=== PATIENT | male | born 1965 | race Caucasian/White ===

== ENCOUNTER 2016-09-03 18:05 | Emergency (ER) | payer OTHER ==
[~2016-09-03] VITALS: Ht 190.5 cm; Wt 73.4 kg
[2016-09-03] MEDS ORDERED: LEVE500T8 PO (18:45)
[2016-09-03] MEDS ORDERED: IPRA3AMP NEB (18:45)
[2016-09-03] MEDS ORDERED: THIA100T10 PO (18:45)
[2016-09-03] MEDS ORDERED: CHOL200024 PO (18:45)
[2016-09-03] MEDS ORDERED: HYDROcodone/APAP 5/325 TABLET PO ONE (19:00)
[2016-09-03] MEDS ORDERED: HYDROcodone/APAP 5/325 TABLET ONE (19:11)
[2016-09-03] MEDS ORDERED: ONDANSETRON ODT 4 MG ONE (19:18)
[2016-09-03] MEDS ORDERED: ONDANSETRON ODT 4 MG PO ONE (19:30)
[2016-09-03 21:50] VITALS: BP 126/90
== END 2016-09-03 21:57 | disposition home or self-care (01) ==
LOC: ED 21:51
DX: S00.83XA Contusion of other part of head, initial encounter (principal); S16.1XXA Strain of muscle, fascia and tendon at neck level, initial encounter; S20.211A Contusion of right front wall of thorax, initial encounter; S40.011A Contusion of right shoulder, initial encounter; W10.9XXA Fall (on) (from) unspecified stairs and steps, initial encounter; Y93.89 Activity, other specified; Y92.89 Other specified places as the place of occurrence of the external cause; Y99.8 Other external cause status; Z86.73 Personal history of transient ischemic attack (TIA), and cerebral infarction without residual deficits; Z87.891 Personal history of nicotine dependence
CPT/HCPCS: 70450; 71101; 72110; 72125; 72190; 99284; Q0162